=== PATIENT | female | born 1975 | race African-American/Black ===

== ENCOUNTER 2023-08-16 17:59 | Inpatient (IN) | payer OTHER ==
[~2023-08-16] VITALS: Ht 142.2 cm; Wt 45.0 kg
[2023-08-16] MEDS ORDERED: 0.9% SODIUM CHLORIDE 10 ML SYRINGE IVP PRN (20:30)
[2023-08-16 20:51] LABS: COVID AG,FIA SOURCE NASAL SWAB
[2023-08-16 20:55] LABS: APPEARANCE,URINE HAZY (CLEAR); BILIRUBIN,URINE NEGATIVE (NEGATIVE); COLOR,URINE DARK YELLOW (YELLOW); GLUCOSE, URINE (UA) NEGATIVE (NEGATIVE); KETONES,URINE NEGATIVE (NEGATIVE); LEUKOCYTE ESTERASE ,URINE TRACE (NEGATIVE); NITRATE,URINE NEGATIVE (NEGATIVE); OCCULT BLOOD,URINE NEGATIVE (NEGATIVE); PROTEIN,URINE 100-200,SEE CONFIRM mg/dL (NEGATIVE)
[2023-08-16] MEDS: SODIUM CHLORIDE 0.9% 1,250 ML IV ONE (21:04)
[2023-08-16] MEDS: CefTRIAXone 1 GM/DEXTROSE 50 ML IV ONE (21:05)
[2023-08-16 21:12] LABS: INFLUENZA TYPE A NEGATIVE FOR TYPE A (NEGATIVE); INFLUENZA TYPE B NEGATIVE FOR TYPE B (NEGATIVE); SARS-COV2 (COVID) ANTIGEN,FIA Negative (Negative)
[2023-08-16] MEDS: AZITHROMYCIN 500 MG/NS 250 ML IV ONE (21:23)
[2023-08-16] MEDS: ACETAMINOPHEN 650 MG/ISO-OSM 65 ML IV ONE (21:24)
[2023-08-16 21:27] LABS: AMORPHOUS SEDIMENT,UR Few /LPF (None Seen); BACTERIA,URINE Few /HPF (None Seen); RBC,URINE None Seen /HPF (0-2); SQUAMOUS EPITHELIAL CELL,UR Moderate /LPF (None Seen); SULFOSALICYLIC ACID,URINE 2+ (Negative)
[2023-08-16 21:43] LABS: BASOPHILS % (AUTO) 0.6 % (0.0-2.0); EOSINOPHILS % (AUTO) 0.1 % (1.0-6.0); HEMATOCRIT 33.6 % (36-46); HEMOGLOBIN 10.7 g/dL (12.0-16.0); LYMPHOCYTES # (AUTO) 2.4 K/uL (1.0-4.8); LYMPHOCYTES % (AUTO) 9.7 % (22.0-44.0); MEAN CORPUSCULAR HEMOGLOBIN 26.5 pg (26.0-34.0); MEAN CORPUSCULAR VOLUME 83 fL (80-100); MONOCYTES # (AUTO) 2.3 K/uL (0.1-1.0); MONOCYTES % (AUTO) 9.5 % (2.0-9.0); NEUTROPHILS # (AUTO) 19.6 K/uL (1.8-7.7); NEUTROPHILS % (AUTO) 80.1 % (40.0-70.0); RED BLOOD CELL COUNT(AUTO) 4.05 MIL/uL (4.00-5.20); RED CELL DISTRIBUTION WIDTH 14.9 % (11.5-14.5); WHITE BLOOD COUNT (AUTO) 24.5 K/uL (4.5-11.0)
[2023-08-16 21:58] LABS: INR 1.1 (0.9-1.1); PROTHROMBIN TIME 11.9 SEC (9.4-11.6)
[2023-08-16] MEDS ORDERED: CARB-92 PO (22:03)
[2023-08-16] MEDS ORDERED: NYST100033 PO (22:03)
[2023-08-16 22:04] LABS: ALANINE AMINOTRANSFERASE 71 U/L (12-78); ALKALINE PHOSPHATASE 298 U/L (46-116); ANION GAP 11 mmol/L (8-16); ASPARTATE AMINOTRANSFERASE 39 U/L (15-37); BILIRUBIN,TOTAL 0.5 mg/dL (0.1-1.0); CALCIUM, TOTAL 8.9 mg/dL (8.8-10.5); CARBON DIOXIDE 26 mmol/L (22-29); CHLORIDE 106 mmol/L (98-107); GLOMERULAR FILTR. RATE CALC > 60 mL/min (>60); GLUCOSE,RANDOM 157 mg/dL (70-110); LIPASE 21 U/L (16-77); POTASSIUM 3.3 mmol/L (3.5-5.1); SODIUM SERUM 143 mmol/L (136-145); TOTAL PROTEIN, SERUM 8.2 g/dL (6.4-8.2); UREA NITROGEN, BLOOD 10 mg/dL (7-18)
[2023-08-16 22:10] LABS: TROPONIN I-HIGH SENSITIVITY 14 ng/L (<51)
[2023-08-16 22:16] LABS: B-TYPE NATRIURETIC PEPTIDE 32 pg/mL (0-100)
[2023-08-16] MEDS ORDERED: ONDANSETRON HCL 4 MG/2 ML VIAL IVP PRN (22:30)
[2023-08-16] MEDS ORDERED: ACETAMINOPHEN 325 MG TABLET PO PRN (22:30)
[2023-08-16 22:35] LABS: PLATELET COUNT (AUTO) 1029 K/uL (150-450)
[2023-08-16 22:36] LABS: PLATELET MORPHOLOGY COMMENT LARGE PLTS PRESENT
[2023-08-16] MEDS ORDERED: MAGNESIUM SULFATE 2 GM/WATER 50 ML IV PRN (22:45)
[2023-08-16] MEDS ORDERED: MAGNESIUM OXIDE 400 MG TABLET PO PRN (22:45)
[2023-08-16] MEDS ORDERED: MAGNESIUM SULFATE 4 GM/WATER 100 ML IV PRN (22:45)
[2023-08-16] MEDS: PIPERACILLIN/TAZO 3.375 GM/D5W 50 ML IV SCH (23:39)
[2023-08-16] MEDS: MAGNESIUM SULFATE 2 GM, MVI, ADULT NO.1 WITH VIT K 10 ML, THIAMINE 100 MG, FOLIC ACID 1... IV ONE (23:40)
[2023-08-16] MEDS: HEPARIN SODIUM,PORCINE 5,000 UNITS/ML VIAL SQ SCH (23:54)
[2023-08-17] MEDS: KETOROLAC TROMETHAMINE 15 MG/ML VIAL IVP ONE (03:28)
[2023-08-17] MEDS: VANCOMYCIN HCL 1 GM in DEXTROSE 5%-WATER 250 ML IV ONE (03:59)
[2023-08-17] MEDS ORDERED: IOHEXOL 350 MG/ML 100 ML VIAL ONE (04:50)
[2023-08-17] MEDS ORDERED: SODIUM CHLORIDE 0.9% 100 ML ONE (04:50)
[2023-08-17] MEDS: FAMOTIDINE 20 MG/2 ML VIAL IVP SCH (08:13)
[2023-08-17] MEDS: POTASSIUM CHL 10 MEQ/WATER 50 ML IV PRN (08:13)
[2023-08-17] MEDS: ACETAMINOPHEN 650 MG/20.3 ML SOLUTION UDCUP PO PRN (08:53)
[2023-08-17] MEDS: CarBAMazepine 200 MG TABLET PO SCH (09:00)
[2023-08-17] MEDS: DOCUSATE SODIUM 100 MG CAPSULE PO SCH (09:00)
[2023-08-17] MEDS: ACETAMINOPHEN 650 MG RECTAL SUPPOSITORY PR PRN (09:07)
[2023-08-17 12:00] VITALS: BP 93/53; PULSE 94; RESP 21; TEMP 100.8
[2023-08-17] MEDS ORDERED: FLUCONAZOLE 100 MG TABLET PO SCH (15:00)
[2023-08-17 15:30] LABS: BASOPHILS % (AUTO) 0.4 % (0.0-2.0); EOSINOPHILS % (AUTO) 0.3 % (1.0-6.0); HEMATOCRIT 34.4 % (36-46); HEMOGLOBIN 10.7 g/dL (12.0-16.0); LYMPHOCYTES % (AUTO) 10.1 % (22.0-44.0); MEAN CORPUSCULAR HGB CONC 31.2 G/dL (31.0-37.0); MEAN CORPUSCULAR VOLUME 84 fL (80-100); MONOCYTES # (AUTO) 1.5 K/uL (0.1-1.0); MONOCYTES % (AUTO) 5.1 % (2.0-9.0); NEUTROPHILS # (AUTO) 24.9 K/uL (1.8-7.7); NEUTROPHILS % (AUTO) 84.1 % (40.0-70.0); RED BLOOD CELL COUNT(AUTO) 4.12 MIL/uL (4.00-5.20)
[2023-08-17 15:32] LABS: ALBUMIN 1.8 g/dL (3.4-5.0); ANION GAP 9 mmol/L (8-16); CALCIUM, TOTAL 8.8 mg/dL (8.8-10.5); CARBON DIOXIDE 25 mmol/L (22-29); CHLORIDE 107 mmol/L (98-107); CREATININE 0.93 mg/dL (0.60-1.30); GLOMERULAR FILTR. RATE CALC > 60 mL/min (>60); GLUCOSE,RANDOM 164 mg/dL (70-110); SODIUM SERUM 141 mmol/L (136-145); UREA NITROGEN, BLOOD 8 mg/dL (7-18)
[2023-08-17 15:52] LABS: PLATELET MORPHOLOGY COMMENT LARGE PLTS PRESENT
[2023-08-17 15:55] LABS: PLATELET COUNT (AUTO) 1042 K/uL (150-450); WHITE BLOOD COUNT (AUTO) 33.1 K/uL (4.5-11.0)
[2023-08-17 16:00] VITALS: BP 101/57; PULSE 112; RESP 35; TEMP 103.7
[2023-08-17] MEDS: FLUCONAZOLE 100 MG/NACL ISOOSM 50 ML IV SCH (16:12)
[2023-08-17 19:07] VITALS: BP 108/60; PULSE 108; RESP 25; TEMP 103
[2023-08-17] MEDS: VANCOMYCIN HCL 500 MG in DEXTROSE 5%-WATER 100 ML IV SCH (19:41)
[2023-08-17] MEDS ORDERED: VANCOMYCIN HCL 750 MG in DEXTROSE 5%-WATER 250 ML IV SCH (20:00)
[2023-08-17 21:00] VITALS: BP 117/56; PULSE 110; RESP 22; TEMP 102.3
[2023-08-17] MEDS: DOXYCYCLINE HYCLATE 100 MG in DEXTROSE 5%-WATER 100 ML IV SCH (21:59)
[2023-08-18 00:25] VITALS: BP 117/60; PULSE 106; RESP 22; TEMP 102.3
[2023-08-18 05:33] VITALS: BP 152/95; PULSE 108; RESP 20; TEMP 98.1
[2023-08-18 05:59] LABS: ANION GAP 10 mmol/L (8-16); CALCIUM, TOTAL 8.3 mg/dL (8.8-10.5); CARBON DIOXIDE 24 mmol/L (22-29); CHLORIDE 105 mmol/L (98-107); CREATININE 0.62 mg/dL (0.60-1.30); GLOMERULAR FILTR. RATE CALC > 60 mL/min (>60); GLUCOSE,RANDOM 117 mg/dL (70-110); POTASSIUM 3.1 mmol/L (3.5-5.1); SODIUM SERUM 139 mmol/L (136-145); UREA NITROGEN, BLOOD 6 mg/dL (7-18)
[2023-08-18 06:04] LABS: BASOPHILS % (AUTO) 0.3 % (0.0-2.0); EOSINOPHILS % (AUTO) 0.1 % (1.0-6.0); HEMATOCRIT 29.7 % (36-46); HEMOGLOBIN 9.3 g/dL (12.0-16.0); LYMPHOCYTES # (AUTO) 3.4 K/uL (1.0-4.8); MEAN CORPUSCULAR HEMOGLOBIN 25.8 pg (26.0-34.0); MEAN CORPUSCULAR HGB CONC 31.3 G/dL (31.0-37.0); MEAN CORPUSCULAR VOLUME 82 fL (80-100); MONOCYTES # (AUTO) 2.2 K/uL (0.1-1.0); MONOCYTES % (AUTO) 7.9 % (2.0-9.0); NEUTROPHILS # (AUTO) 22.5 K/uL (1.8-7.7); NEUTROPHILS % (AUTO) 79.7 % (40.0-70.0); RED BLOOD CELL COUNT(AUTO) 3.61 MIL/uL (4.00-5.20); RED CELL DISTRIBUTION WIDTH 14.3 % (11.5-14.5); WHITE BLOOD COUNT (AUTO) 28.3 K/uL (4.5-11.0)
[2023-08-18 06:09] LABS: PLATELET COUNT (AUTO) 907 K/uL (150-450)
[2023-08-18 07:38] VITALS: BP 107/56; PULSE 105; RESP 18; TEMP 102.7
[2023-08-18] MEDS: POTASSIUM CHLORIDE 20 MEQ ER TABLET PO PRN (08:12)
[2023-08-18] MEDS ORDERED: SODIUM CHLORIDE 0.9% 500 ML IV ONE (09:25)
[2023-08-18 11:40] VITALS: BP 141/60; PULSE 109; RESP 12; TEMP 102.7
[2023-08-18] MEDS: LevETIRAcetam 750 MG in DEXTROSE 5%-WATER 100 ML IV SCH (12:13)
[2023-08-18 13:07] VITALS: TEMP 97.5
[2023-08-18] MEDS: *CLINICAL-MEROPENEM DOSING CLINICAL ONE (14:18)
[2023-08-18 15:38] VITALS: BP 94/62; PULSE 100; RESP 12; TEMP 98.2
[2023-08-18] MEDS ORDERED: MEROPENEM 1 GM in SODIUM CHLORIDE 0.9% 100 ML IV SCH (18:00)
[2023-08-20 16:06] LABS: LEGIONELLA PNEUMO AG URINE Negative (Negative); S PNEUMO SOURCE Urine; STREP PNEUMONIAE AG URINE Negative (Negative)
== END 2023-08-18 18:15 | disposition short-term general hospital (02) | DRG 871 ==
LOC: EMS 17:59 → AHU 08-17 00:39 → ICU 08-17 09:58 → 5N 08-17 19:14
PROVIDERS: ADMIT Internal Medicine; ATTEND Internal Medicine
PROC: 05HA33Z Insertion of Infusion Device into Left Brachial Vein, Percutaneous Approach (ICD-10-PCS; principal; 2023-08-17)
DX: A41.9 Sepsis, unspecified organism (principal); E43 Unspecified severe protein-calorie malnutrition; J69.0 Pneumonitis due to inhalation of food and vomit; R53.2 Functional quadriplegia; J90 Pleural effusion, not elsewhere classified; B37.0 Candidal stomatitis; G80.9 Cerebral palsy, unspecified; Z20.822 Contact with and (suspected) exposure to COVID-19; G40.909 Epilepsy, unspecified, not intractable, without status epilepticus; B37.9 Candidiasis, unspecified; D75.839 Thrombocytosis, unspecified; R09.02 Hypoxemia; Z98.1 Arthrodesis status; Z79.899 Other long term (current) drug therapy; Z74.01 Bed confinement status; Z68.22 Body mass index [BMI] 22.0-22.9, adult
CPT/HCPCS: 36245; 36569; 51702; 70487; 70491; 71045; 71250; 76937; 80048; 80053; 81001; 81002; 82040; 83605; 83690; 83735; 83880; 84132; 84145; 84484; 84703; 85025; 85610; 87040; 87081; 87449; 87804; 87899; 92526; 93005; 99285; J0131; J0456; J0696; J0712; J1450; J1644; J1885; J2185; J2543; J3370; J3411; J3475; J3480; J3490; J7030; J7040; J7050; J7060; Q9967; 36415-L1; 36415-TC